=== PATIENT | female | born 1980 | race Caucasian/White ===

== ENCOUNTER 2016-05-02 09:58 | Emergency (ER) | payer OTHER ==
[~2016-05-02] VITALS: Ht 170.2 cm; Wt 72.0 kg
[~2016-05-02 09:58] MED LIST: LORA.5 PO; TAB-TAB PO; Z.0.BCPILL PO
[2016-05-02 10:00] VITALS: BP 127/77; PULSE 76; RESP 16; TEMP 98; O2SAT 96
[2016-05-02] MEDS ORDERED: BUPR150XL PO (10:25)
[2016-05-02] MEDS ORDERED: MULT1TAB84 PO (10:25)
[2016-05-02] MEDS ORDERED: LORA-373 PO (10:25)
[2016-05-02] MEDS ORDERED: PHEN37.5 PO (10:25)
--- NOTE | 2016-05-02 11:02 | PD ---
HPI Chief Complaint: Eye Problems/Injury Time Seen by Provider: 11:02 Travel History International Travel<30 days: No Contact w/Intl Traveler<30days: No Traveled to known affect area: No History of Present Illness HPI 35-year-old female presents to the emergency department for evaluation of left eye chemical exposure. 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 States that she's had burning in the left eye since this occurred with some increased tearing. Denies any vision loss, photophobia, eye pain, headache, dizziness. Denies wearing contact lenses. States that she did flush her eye out with about 200 cc of saline and used the eye irrigation station for about 2 minutes which did improve her symptoms. Symptoms aggravated by chemical exposure. Alleviated with irrigation. No other complaints. PFSH Past Medical History Anemia: Yes (BOARDERLINE) Cancer: Yes (PRECERVICAL- HAD LEEP) Cardiovascular Problems: No Diabetes: No Endocrine: No Genitourinary: No Hepatitis: No Hiatal Hernia: No Immune Disorder: No Musculoskeletal: No Neurologic: No Psychiatric: No Reproductive: No Respiratory: No Thyroid Disease: No : 0 Para: 0 Ectopic : No Ovarian Cysts: No Tubal Ligation: No Past Surgical History Abdominal Surgery: No AICD: No Body Medical Devices: breast implants Cardiac Surgery: No Ear Surgery: No Endocrine Surgery: No Eye Surgery: Yes (LASIK BILATERAL) Genitourinary Surgery: Yes (BLADDER INFLATION AND CYSTOSCOPY) Gynecologic Surgery: Yes (LEAP PROCEDURE IN 2000, CONE BIOPSY 2007, CRYOTHERAPY CERVIX) Hysterectomy: No Joint Replacement: No Oral Surgery: No Pacemaker: No Thoracic Surgery: No Social History Alcohol Use: Yes (ONCE A WEEK) Tobacco Use: Yes (1/2 PK/DAY) Substance Use: No Allergies-Medications (Allergen,Severity, Reaction): Coded Allergies: No Known Allergies (Unverified , 05/02/16) Reported Meds & Prescriptions Reported Meds & Active Scripts Active Erythromycin Opth Oint 5 Mg/Gm Oint 1 Applic LEFT EYE QID 5 Days Reported Phentermine (Phentermine HCl) 37.5 Mg Tab Unknown Dose PO DAILY Wellbutrin Xl 24 HR (Bupropion HCl) 150 Mg Tab 150 Mg PO DAILY Lorazepam 0.5 Mg Tab 0.5 Mg PO Q12HR PRN Multivitamin Adults (Multiple Vitamins W/ Minerals) 1 Tab 1 Tab PO DAILY Multivitamin (Multivitamins) 1 Tab Tab 1 Tab PO DAILY Lorazepam 0.5 Mg Tab 0.5 PO HS Control Pills (Miscellaneous Medication) Tab 1 Tab PO DAILY Review of Systems Except as stated in HPI: all other systems reviewed are Neg Physical Exam Narrative GENERAL: Well-nourished and well-developed pleasant patient in no acute distress who is nontoxic appearing. SKIN: Warm and dry. HEAD: Normocephalic and atraumatic. EYES: No injection, drainage, or hyphema noted. PERRLA. EOMI. pH of the left eye is noted to be 7. Fluorescein stain reveals no uptake. No ulcerations, abrasions, or foreign bodies noted the cornea is clear. Visual acuity is decreased in the left eye but the patient reports this as her baseline. ENT: No nasal drainage noted. Oropharynx is clear. NECK: Supple and the trachea is midline. CARDIOVASCULAR: Regular rate and rhythm. RESPIRATORY: Breath sounds are equal bilaterally with no accessory muscle use, wheezing, rhonchi, or crackles. NEUROLOGICAL: Awake, alert, and oriented. Normal speech and gait. Cranial nerves are grossly intact. Data Data Last Documented VS Vital Signs Date Time Temp Pulse Resp B/P Pulse Ox O2 Delivery O2 Flow Rate FiO2 05/02/16 10:00 98.0 76 16 127/77 96 Room Air Orders Call Poison Control (05/02/16 10:40) [facility] Medical Decision Making Medical Screen Exam Complete: Yes Emergency Medical Condition: Yes Differential Diagnosis Chemical irritation versus abrasion versus ulceration versus burn Narrative Course 35-year-old female presents to the emergency department for evaluation of left eye irritation after splashing fluid from cleaning wives and her left eye. Patient is afebrile, vital signs are stable. Fluorescein stain is negative. Her pH is within normal limits. She still having some burning so we'll flush her eyes again using the eye irrigation station. Poison control was contacted and agrees with treatment regimen. She'll be prescribed erythromycin ointment prophylactically. Discussed supportive care and advised to follow-up with an push connector assembler if symptoms persist. Patient verbalizes understanding and agreement with treatment plan. Diagnosis Primary Impression: Eye irritation Referrals: [facility] Stretcher [facility] Tester Patient Instructions: Eye Pain (ED), General Instructions Additional Instructions: Use ointment as prescribed. Follow-up with your Primary Care Physician or an push connector assembler if symptoms persist. Return to the ED for any acute worsening of symptoms. Med/Other Pt SpecificInfo: Prescription(s) given Scripts Erythromycin Opth Oint 5 Mg/Gm Oint1 Applic LEFT EYE QID 5 Days Ref 0 Prov:Bridget Montiel MD 05/02/16 Disposition: 01 DISCHARGE HOME Condition: Stable Rianna Muse May 02, 2016 11:02
[2016-05-02] MEDS ORDERED: ERYTOIN10 LEFT EYE (11:17)
[2016-05-06] MEDS ORDERED: MACR100C2 PO (10:51)
[2016-05-31] MEDS ORDERED: BIRTH CONTROL PO (15:15)
[2016-05-31] MEDS ORDERED: LORA-373 PO (15:15)
[2016-05-31] MEDS ORDERED: NAPR250T PO (15:16)
[2016-05-31] MEDS ORDERED: BENA25TA3 PO (15:16)
[2016-05-31] MEDS ORDERED: CETI10 PO (15:16)
[2016-06-03] MEDS ORDERED: TRI-TAB PO (06:58)
== END 2016-05-02 11:36 | disposition home or self-care (01) ==
LOC: NEPB 09:58
DX: H57.8 Other specified disorders of eye and adnexa (principal); F17.200 Nicotine dependence, unspecified, uncomplicated; Z77.098 Contact with and (suspected) exposure to other hazardous, chiefly nonmedicinal, chemicals; Z86.2 Personal history of diseases of the blood and blood-forming organs and certain disorders involving the immune mechanism; Z85.41 Personal history of malignant neoplasm of cervix uteri; X58.XXXA Exposure to other specified factors, initial encounter; Y92.239 Unspecified place in hospital as the place of occurrence of the external cause; Y99.0 Civilian activity done for income or pay
CPT/HCPCS: 99283

== ENCOUNTER → 2016-06-03 | Day surgery (SDC) | payer OTHER ==
--- NOTE | 2016-06-01 13:10 | MH ---
cc: CELI BAIG MD DATE OF ADMISSION: 06/03/2016 DATE OF 1980 REASON FOR ADMISSION Bladder distention, cystoscopy for bladder pain syndrome. HISTORY OF THE PRESENT ILLNESS The patient is a 34-year-old white female 1, para 1 with history of interstitial cystitis. She has noted exacerbation of interstitial cystitis despite conservative measures of treatment with antihistamines and nonsteroidals. She wants to proceed with hydrodistention and ablation of any lesions that are present. PAST MEDICAL HISTORY The patient's medical history is negative for heart, lung, liver disease, hypertension, diabetes or stroke. PAST SURGICAL HISTORY 1. Prior cystoscopy. 2. Conization of cervix. 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 No STDs. Distant history of abnormal Pap smear. OBSTETRICAL HISTORY One vaginal delivery. FAMILY HISTORY Noncontributory. 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 Does not use alcohol, tobacco, drugs. , has good social support. ALLERGIES None. REVIEW OF SYSTEMS As above. No chest pain, orthopnea, PND. No nausea, vomiting, fever or chills. No vaginal bleeding or discharge. Remainder of 14-point review negative. MEDICATIONS 1. Oral contraception combination pill. 2. Lorazepam 0.5 mg p.r.n. q.h.s. ALLERGIES None. PHYSICAL EXAMINATION VITAL SIGNS: On exam she is afebrile. Vital signs stable. Blood pressure is 120/70, height is 5 feet 7 inches, weight is 149. BMI is 23.3. GENERAL: The patient is alert and oriented in no acute distress. No signs of cognitive dysfunction or depression. HEENT: Within normal limits. NECK: Supple. No JVD. CHEST: Clear. HEART: Regular rate and rhythm. ABDOMEN: Soft, nontender. No hepatosplenomegaly. No CVA tenderness. PELVIC: Examination will be detailed under anesthesia. EXTREMITIES: Normal. SKIN: Without rashes. NEUROLOGIC: Examination nonfocal. No DVT signs. ASSESSMENT Patient with bladder pain / interstitial cystitis. We discussed options for management and treatment. She is aware of the risks, benefits and alternatives to the planned procedure including damage to surrounding organs, bleeding, infection, bladder rupture, failure to relieve pain and possibility of pain exacerbation. At this point we plan on using sterile water for hydrodistention to a pressure of 50 cm of water. If there are any lesions noted we will ablate them with electrocautery. Actually after the procedure we will use a bladder cocktail of Kenalog, sodium bicarbonate, lidocaine, heparin. Anticipate outpatient procedure. The patient requests an all female team if possible including transport and postoperative recovery. Anticipate outpatient procedure. MD CHRISTIANO Cheng/MELI /4:19 PM /1:07 PM
[~2016-06-03] VITALS: Ht 170.2 cm; Wt 70.4 kg
[~2016-06-03] MED LIST changes: +*MEPERIDINE 25 MG INJ VIAL PERIprocedural Use ONLY ONE; +APREPITANT 40 MG CAP ONE; +BENA25TA3 PO; +BIRTH CONTROL PO; +BUPR150XL PO; +CETI10 PO; +DEXAMETHASONE SOD PHOS 4 MG/ML VIAL ONE; +HEPARIN SODIUM - SQ 10,000 UNITS/ML VIAL ONE; +INSULIN HUMAN REGULAR 1,000 UNITS/10 ML VIAL SQ PRN; +KETOROLAC TROMETHAMINE 60 MG/2 ML (IM) VIAL IM ONE; +LACTATED RINGER'S 1000 ML IV SCH; +LIDOCAINE HCL 1% 50 ML VIAL ONE; +LORA-373 PO; -LORA.5 PO; +METOPROLOL TARTRATE 25 MG TAB PO PRN; +MIDAZOLAM HCL 2 MG/2 ML VIAL ONE; +MORPHINE SULFATE 4 MG/ML INJ ONE; +MULT1TAB84 PO; +NAPR250T PO; +ONDANSETRON HCL 4 MG/2 ML VIAL IV PUSH ONE; +PROPOFOL 200 MG/20 ML AMP IV ONE; +SODIUM BICARBONATE 8.4% INJ 50 MEQ/50 ML SYR ONE; +SODIUM CHLORID 0.9% 500 ML IV SCH; -TAB-TAB PO; +TRI-TAB PO; +TRIAMCINOLONE ACETONIDE 40 MG/ML VIAL ONE; -Z.0.BCPILL PO; +ceFAZolin 1,000 MG/NS 100 ML IV SCH
[2016-06-03 07:02] VITALS: BP 104/67; PULSE 72; RESP 16; TEMP 98.5; O2SAT 98
[2016-06-03 10:30] VITALS: BP 133/77; PULSE 69; RESP 16; TEMP 98; O2SAT 100
--- NOTE | 2016-06-07 09:17 | MP ---
cc: CELI BAIG MD DATE OF SURGERY 06/03/2016 PREOPERATIVE DIAGNOSES Interstitial cystitis, painful bladder syndrome. POSTOPERATIVE DIAGNOSIS Interstitial cystitis, painful bladder syndrome. PROCEDURE Diagnostic cystoscopy with hydrodistention. 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 Point C is -8. Total vaginal length is 10. Genital hiatus is 5. Perineal body is 5, uterus is anteverted and anteflexed, no adnexal mass. Cystoscopy prior to hydrodistention shows normal trigone, no glomerulations, ulcers or polyps. Following hydrodistention, some prominent vasculature, but no significant glomerulations, ulcers, or significant abnormalities of the trigone or ureteral orifices. Anesthetic bladder capacity is 625 cc. SPECIMENS None COMPLICATIONS None DISPOSITION To recovery room stable. COUNTS Needle and sponge counts correct. DRAINS None BLADDER INSTILLATION Sodium bicarb/40,000 units heparin/300 mg lidocaine without epinephrine/Kenalog 40 mg SUMMARY OF INDICATION FOR THE PROCEDURE Patient with symptomatic bladder pain. She has had a negative urinalysis, has a history of prior cystoscopic findings suggestive of interstitial cystitis. The patient has had recent exacerbation of symptoms and wanted to proceed with repeat hydrodistention and fulguration of ulcers if present. PROCEDURE The patient was taken to the operating room theater, identified, prepped and draped in a fashion for the planned procedure. She was in the dorsal lithotomy position with careful attention paid to placement of legs in the stirrups to avoid undue stress to sensitive vascular structures. The above findings were noted. Neurovascular integrity documented. The above findings noted. The 20-[place] bridge, 30 degree scope was used to inspect the bladder initially. The above findings noted. Hydrodistention was performed using water at 57 cm of pressure with hydrodistention and then repeat inspection with a 30 and 70 degrees scope. There were no significant ulcerations, glomerulations or abnormalities of bladder except some prominent vasculature. Bladder was drained and then instillation with a above-noted Kenalog/heparin/bicarb/lidocaine solution was instituted. The patient tolerated the procedure well and went to recover room in stable condition. If the patient has significant issues, she may be a reasonable candidate for consideration of InterStim or other therapies. MD CHRISTIANO Cheng/DEEPTI /8:47 AM /9:09 AM
== END | disposition home or self-care (01) ==
LOC: HSDC 06:03
PROVIDERS: ATTEND Obstetrics & Gynecology Gynecology
DX: N30.10 Interstitial cystitis (chronic) without hematuria (principal); R39.89 Other symptoms and signs involving the genitourinary system
CPT/HCPCS: 00910; 52260; J0690; J1100; J1644; J1885; J2175; J2250; J2270; J2405; J3010; J3301; J7120; J8501